=== PATIENT | male | born 1950 | race Native Hawaiian/Other Pacific Islander ===

== ENCOUNTER 2020-05-30 17:37 | Outpatient (CLI) | payer OTHER ==
[2020-05-30 19:06] LABS: POTASSIUM 4.3 mmol/L (3.6-5.2)
[2020-05-30 19:24] LABS: PLATELET COUNT 206 K/uL (142-355)
== END 2020-05-30 23:52 | disposition home or self-care (01) ==
LOC: LAB 17:37
PROVIDERS: ATTEND Nurse Practitioner Family
DX: Z00.00 Encounter for general adult medical examination without abnormal findings (principal); I51.9 Heart disease, unspecified; R53.83 Other fatigue; R53.81 Other malaise; Z79.899 Other long term (current) drug therapy
CPT/HCPCS: 80053; 80061; 82306; 82607; 83036; 84439; 84443; 85027

== ENCOUNTER 2020-09-09 15:26 | Outpatient (CLI) | payer OTHER | END 2020-09-09 23:44 | disposition home or self-care (01) | LOC: LAB 15:26 | PROVIDERS: ATTEND Nurse Practitioner Family | DX: Z00.00 Encounter for general adult medical examination without abnormal findings (principal); I51.9 Heart disease, unspecified; E78.49 Other hyperlipidemia; E55.9 Vitamin D deficiency, unspecified; Z79.899 Other long term (current) drug therapy; R53.83 Other fatigue; R53.81 Other malaise | CPT/HCPCS: 80053; 80061; 82306; 82607; 83036; 84153; 84403 ==